=== PATIENT | male | born 1970 | race Hispanic/Latino ===

== ENCOUNTER 2017-11-01 15:42 | Emergency (ER) | payer SELFPAY ==
[2017-11-01] MEDS ORDERED: ASPIRIN 81 MG CHEWABLE TABLET ONE (15:59)
[2017-11-01 16:20] LABS: Absolute Lymphocytes (CBC) 3.2 K/uL (0.7-4.9); Absolute Monocytes 0.6 K/uL (0.1-1.3); Absolute Neutrophil 4.1 K/uL (1.8-8.0); Basophils % 0.4 % (0-1.3); Eosinophils % 2.3 % (0-4.4); Hematocrit 43.7 % (39.6-49.0); Lymphocytes % 39.8 % (15.3-44.8); MCH 30.6 pg (27.0-35.0); MCV 88.6 fL (80-100); MPV 9.1 fL (7.6-11.3); Monocytes % 7.7 % (3.3-12.3); RBC Red Blood Cell Count 4.93 M/uL (4.33-5.43)
[2017-11-01 16:27] LABS: Protime INR 0.88
[2017-11-01 16:30] LABS: Potassium 3.3 mEq/L (3.6-5.0)
[2017-11-01 16:36] LABS: Albumin 4.2 g/dL (3.2-5.5); Bilirubin Direct 0.1 mg/dL (0-0.2); Bilirubin Total 0.7 mg/dL (0.3-1.2); Magnesium 1.6 mg/dL (1.8-2.5); Protein, Total 7.5 g/dL (6.0-8.3)
--- NOTE | 2017-11-01 16:50 | RAD REPORT ---
EXAM DESCRIPTION: RAD - Chest Single View - 11/01/2017 4:12 pm CLINICAL HISTORY: Left-sided chest pain COMPARISON: None. TECHNIQUE: AP portable chest image was obtained 1601 hours . FINDINGS: Lungs are clear. Heart and vasculature are normal. No measurable pleural effusion and no p neumothorax. No gross bony abnormality seen. No acute aortic findings suspected. IMPRESSION: No acute cardiopulmonary process.
[2017-11-01] MEDS ORDERED: POTASSIUM 25 MEQ EFFERV TAB ONE (17:00)
[2017-11-01] MEDS ORDERED: MAGNESIUM SULFATE 1 gm IVPB 1 GM/100 ML BAG IV ONE (17:00)
[2017-11-01] MEDS ORDERED: ONDANSETRON 4 MG/2 ML VIAL ONE (17:00)
[2017-11-01] MEDS ORDERED: MORPHINE 4 MG/ML SYR ONE (17:00)
[2017-11-01] MEDS ORDERED: NA CHLORIDE 0.9% 1,000 ML ONE (17:01)
[2017-11-01 17:58] LABS: Urine Blood NEGATIVE (NEG); Urine Glucose NEGATIVE (NEG); Urine Protein NEGATIVE (NEG); Urine Specific Gravity <1.005 (1.005-1.030)
--- NOTE | 2017-11-01 20:50 | ER ---
Nurse's Notes [facility] Name: Philippe Jose Age: 47 yrs Sex: Male : 1970 Arrival Date: 11/01/2017 Time: 15:45 Bed 5 Private MD: None, None Diagnosis: Chest pain, unspecified Presentation: 11/01 15:50 Presenting complaint: Patient states: left sided chest pain with left arm numbness that sv started "a couple of hours ago." c/o nausea and SOB. Transition of care: patient was not received from another setting of care. Onset of symptoms was November 01, 2017. 15:50 Method Of Arrival: Wheelchair sv 15:50 Acuity: ANTHONY 2 sv 15:51 Risk Assessment: Do you want to hurt yourself or someone else? Patient reports no sv desire to harm self or others. Initial Sepsis Screen: Does the patient meet any 2 criteria? No. Patient's initial sepsis screen is negative. Does the patient have a suspected source of infection? No. Patient's initial sepsis screen is negative. Care prior to arrival: None. Historical: - Allergies: 15:51 No Known Allergies; sv - Home Meds: 15:51 vitamins [Active]; sv - PMHx: 15:51 None; sv - PSHx: 15:51 ankle; sv - Immunization history:: Adult Immunizations up to date. - Social history:: Smoking status: Patient/guardian denies using tobacco. - Ebola Screening: : Patient negative for fever greater than or equal to 101.5 degrees Fahrenheit, and additional compatible Ebola Virus Disease symptoms Patient denies exposure to infectious person Patient denies travel to an Ebola-affected area in the 21 days before illness onset. Screenin:53 Abuse screen: Denies threats or abuse. Denies injuries from another. Nutritional hb screening: No deficits noted. Tuberculosis screening: No symptoms or risk factors identified. Fall Risk None identified. Assessment: 15:55 General: Appears in no apparent distress. uncomfortable, Behavior is cooperative, hb anxious. Pain: Complains of pain in chest Pain does not radiate. Pain currently is 3 out of 10 on a pain scale. Quality of pain is described as pressure, Pain began suddenly, 2 hours ago. Neuro: Level of Consciousness is awake, alert, obeys commands, Oriented to person, place, time, situation. Cardiovascular: Heart tones S1 S2 present Capillary refill < 3 seconds Patient's skin is warm and dry. Respiratory: Airway is patent Trachea midline Respiratory effort is even, unlabored, Respiratory pattern is regular, symmetrical, Breath sounds are clear bilaterally. GI: No signs and/or symptoms were reported involving the gastrointestinal system. : No signs and/or symptoms were reported regarding the genitourinary system. EENT: No signs and/or symptoms were reported regarding the EENT system. Derm: No signs and/or symptoms reported regarding the dermatologic system. Skin is intact, is healthy with good turgor, Skin is pink, warm \\T\\ dry. normal. 16:26 Reassessment: Patient appears in no apparent distress at this time. No changes from hb previously documented assessment. Patient and/or family updated on plan of care and expected duration. Pain level reassessed. Patient is alert, oriented x 3, equal unlabored respirations, skin warm/dry/pink. 17:06 Reassessment: Pt c/o right sided chest pain 8/10 that now radiates to left side. ASSOCIATE PROFESSOR OF MEDIA ARTS Justo notified, zofran and morphine administered as ordered. 17:30 Reassessment: Patient appears in no apparent distress at this time. Patient and/or hb family updated on plan of care and expected duration. Pain level reassessed. Patient is alert, oriented x 3, equal unlabored respirations, skin warm/dry/pink. Patient denies pain at this time. Patient states feeling better. Patient states symptoms have improved. 18:25 Reassessment: Patient appears in no apparent distress at this time. No changes from hb previously documented assessment. Patient and/or family updated on plan of care and expected duration. Pain level reassessed. Patient is alert, oriented x 3, equal unlabored respirations, skin warm/dry/pink. 19:50 General: Appears in no apparent distress. comfortable, Behavior is calm, cooperative, ao appropriate for age. Pain: Complains of pain in chest Pain does not radiate. Pain currently is 0 out of 10 on a pain scale. Neuro: Level of Consciousness is awake, alert, obeys commands, Oriented to person, place, time, situation, Appropriate for age Moves all extremities. Speech is normal, Facial symmetry appears normal. Cardiovascular: Denies chest pain, Heart tones S1 S2 present Capillary refill < 3 seconds Patient's skin is warm and dry. Respiratory: Airway is patent Respiratory effort is even, unlabored, Respiratory pattern is regular, symmetrical. GI: No signs and/or symptoms were reported involving the gastrointestinal system. Abdomen is non-distended. : No signs and/or symptoms were reported regarding the genitourinary system. EENT: No signs and/or symptoms were reported regarding the EENT system. Derm: Skin is intact, is healthy with good turgor, Skin is pink, warm \\T\\ dry. normal, Skin temperature is warm. Musculoskeletal: Circulation, motion, and sensation intact. Range of motion: intact in all extremities. 20:40 Reassessment: Patient appears in no apparent distress at this time. Patient and/or ao family updated on plan of care and expected duration. Pain level reassessed. Patient is alert, oriented x 3, equal unlabored respirations, skin warm/dry/pink. 21:03 Reassessment: DC instructions given to patient. Patient understand the POC and to ao follow up with PCP. Vital Signs: 15:51 BP 162 / 112; Pulse 97; Resp 20; Temp 98.6; Pulse Ox 99% ; Weight 83.46 kg; Height 5 sv ft. 6 in. (167.64 cm); 16:26 BP 155 / 93; Pulse 99; Resp 14; Pulse Ox 99% on R/A; hb 17:07 BP 151 / 86; Pulse 88; Resp 17; Pulse Ox 100% on R/A; hb 17:47 BP 149 / 85; Pulse 84; Resp 17; Pulse Ox 96% on R/A; dh3 18:31 BP 122 / 80; Pulse 83; Resp 15; Pulse Ox 100% on R/A; Pain 0/10; hb 19:49 BP 141 / 78; Pulse 75; Resp 16; Pulse Ox 99% on R/A; rv 20:45 BP 133 / 74; Pulse 79; Resp 16; Pulse Ox 98% on R/A; Pain 0/10; ao 21:03 BP 135 / 90; Pulse 72; Resp 16; Pulse Ox 100% ; Pain 0/10; ao 15:51 Body Mass Index 29.70 (83.46 kg, 167.64 cm) sv ED Course: 15:45 Patient arrived in ED. sb2 15:46 None, None is Private Physician. sb2 15:48 [facility] pm1 15:48 Dirk Romero MD is Attending Physician. pm1 15:51 Triage completed. sv 15:52 Arm band placed on right wrist. sv 15:53 Cande Jackson, GATITO is Primary Nurse. hb 15:54 Patient has correct armband on for positive identification. Placed in gown. Bed in low hb position. Call light in reach. Side rails up X 1. gas distribution plant operator on. Pulse ox on. NIBP on. 15:54 Inserted saline lock: 18 gauge in right antecubital area, using aseptic technique. hb Blood collected. Patient maintains SpO2 saturation greater than 95% on room air. 15:58 EKG done, by ED staff, reviewed by Justo Rebollar NP. 3 16:10 XRAY Chest (1 view) In Process Unspecified. EDMS 20:55 No provider procedures requiring assistance completed. IV discontinued, intact, ao bleeding controlled, No redness/swelling at site. Pressure dressing applied. Administered Medications: 15:55 Drug: Aspirin Chewable Tablet 324 mg Route: PO; hb 20:34 Follow up: Response: No adverse reaction ao 17:05 Drug: Magnesium Sulfate 1 grams Route: IVPB; Infused Over: 1 hrs; Site: right hb antecubital; 21:08 Follow up: IV Status: Completed infusion ao 17:05 Drug: Potassium Effervescent Tablet 50 mEq Route: PO; hb 21:08 Follow up: Response: No adverse reaction ao 17:05 Drug: morphine 4 mg Route: IVP; Site: right antecubital; hb 21:07 Follow up: Response: No adverse reaction ao 17:06 Drug: Zofran 4 mg Route: IVP; Site: right antecubital; hb 21:07 Follow up: Response: No adverse reaction ao 17:30 Drug: NS 0.9% 1000 ml Route: IV; Rate: 1000 ml; Site: right antecubital; hb 21:07 Follow up: IV Status: Completed infusion; IV Intake: 1000ml ao Intake: 21:07 IV: 1000ml; Total: 1000ml. ao Outcome: 20:49 Discharge ordered by . pm1 21:05 Discharged to home ambulatory. ao 21:05 Condition: stable 21:05 Discharge instructions given to patient, Instructed on discharge instructions, Demonstrated understanding of instructions, follow-up care, medications. 21:06 Patient left the ED. ao Signatures: Dispatcher [employer] EDUrmila Junior, RN RN Joesph Reddy RN RN Justo Vaughan, ASSOCIATE PROFESSOR OF MEDIA ARTS ASSOCIATE PROFESSOR OF MEDIA [employer]S pm1 Cande Jackson RN RN Clair Grewal 3 Shira Abreu 2 Tyrone Cooley RN RN rv
--- NOTE | 2017-11-01 20:50 | EDPHYS ---
Physician Documentation [facility] Name: Philippe Jose Age: 47 yrs Sex: Male : 1970 Arrival Date: 11/01/2017 Time: 15:45 Bed 5 Private MD: None, None ED Physician Dirk Romero HPI: 11/01 17:00 This 47 yrs old Male presents to ER via Wheelchair with complaints of Chest pm1 Pain. 17:00 The patient or guardian reports chest pain that is located primarily in the anterior pm1 chest wall, left. Onset: 2 hour(s) ago. The pain does not radiate. Associated signs and symptoms: Pertinent negatives: abdominal pain, cough, diaphoresis, dizziness, headache, nausea, palpitations, shortness of breath, vomiting. The chest pain is described as aching. Duration: The patient or guardian reports a single episode. Modifying factors: The symptoms are alleviated by nothing. the symptoms are aggravated by emotionally stressful situations. Severity of pain: in the emergency department the pain is unchanged. The patient has experienced similar episodes in the past, a few times, and the symptoms today are exactly the same, to when the patient was apparently diagnosed with Anxiety. The patient has not recently seen a physician. Historical: - Allergies: 15:51 No Known Allergies; sv - Home Meds: 15:51 vitamins [Active]; sv - PMHx: 15:51 None; sv - PSHx: 15:51 ankle; sv - Immunization history:: Adult Immunizations up to date. - Social history:: Smoking status: Patient/guardian denies using tobacco. - Ebola Screening: : Patient negative for fever greater than or equal to 101.5 degrees Fahrenheit, and additional compatible Ebola Virus Disease symptoms Patient denies exposure to infectious person Patient denies travel to an Ebola-affected area in the 21 days before illness onset. ROS: 17:00 Constitutional: Negative for fever, chills, and weight loss, Eyes: Negative for injury, pm1 pain, redness, and discharge, ENT: Negative for injury, pain, and discharge, Neck: Negative for injury, pain, and swelling, Respiratory: Negative for shortness of breath, cough, wheezing, and pleuritic chest pain, Abdomen/GI: Negative for abdominal pain, nausea, vomiting, diarrhea, and constipation, Back: Negative for injury and pain, : Negative for injury, bleeding, discharge, and swelling. 17:00 MS/Extremity: Negative for injury and deformity, Skin: Negative for injury, rash, and discoloration, Neuro: Negative for headache, weakness, numbness, tingling, and seizure. 17:00 Cardiovascular: Positive for chest pain, Negative for edema, orthopnea, palpitations. Exam: 17:00 Constitutional: This is a well developed, well nourished patient who is awake, alert, pm1 and in no acute distress. Head/Face: Normocephalic, atraumatic. Eyes: Pupils equal round and reactive to light, extra-ocular motions intact. Lids and lashes normal. Conjunctiva and sclera are non-icteric and not injected. Cornea within normal limits. Periorbital areas with no swelling, redness, or edema. ENT: Nares patent. No nasal discharge, no septal abnormalities noted. Tympanic membranes are normal and external auditory canals are clear. Oropharynx with no redness, swelling, or masses, exudates, or evidence of obstruction, uvula midline. Mucous membranes moist. Neck: Trachea midline, no thyromegaly or masses palpated, and no cervical lymphadenopathy. Supple, full range of motion without nuchal rigidity, or vertebral point tenderness. No Meningismus. Chest/axilla: Normal chest wall appearance and motion. Nontender with no deformity. No lesions are appreciated. Cardiovascular: Regular rate and rhythm with a normal S1 and S2. No gallops, murmurs, or rubs. Normal PMI, no JVD. No pulse deficits. Respiratory: Lungs have equal breath sounds bilaterally, clear to auscultation and percussion. No rales, rhonchi or wheezes noted. No increased work of breathing, no retractions or nasal flaring. Abdomen/GI: Soft, non-tender, with normal bowel sounds. No distension or tympany. No guarding or rebound. No evidence of tenderness throughout. Back: No spinal tenderness. No costovertebral tenderness. Full range of motion. Skin: Warm, dry with normal turgor. Normal color with no rashes, no lesions, and no evidence of cellulitis. MS/ Extremity: Pulses equal, no cyanosis. Neurovascular intact. Full, normal range of motion. 17:00 Neuro: Orientation: is normal, Motor: is normal, moves all fours, Sensation: is normal, no obvious gross deficits. 17:00 Psych: Behavior/mood is cooperative, anxious. Vital Signs: 15:51 BP 162 / 112; Pulse 97; Resp 20; Temp 98.6; Pulse Ox 99% ; Weight 83.46 kg; Height 5 sv ft. 6 in. (167.64 cm); 16:26 BP 155 / 93; Pulse 99; Resp 14; Pulse Ox 99% on R/A; hb 17:07 BP 151 / 86; Pulse 88; Resp 17; Pulse Ox 100% on R/A; hb 17:47 BP 149 / 85; Pulse 84; Resp 17; Pulse Ox 96% on R/A; dh3 18:31 BP 122 / 80; Pulse 83; Resp 15; Pulse Ox 100% on R/A; Pain 0/10; hb 19:49 BP 141 / 78; Pulse 75; Resp 16; Pulse Ox 99% on R/A; rv 20:45 BP 133 / 74; Pulse 79; Resp 16; Pulse Ox 98% on R/A; Pain 0/10; ao 21:03 BP 135 / 90; Pulse 72; Resp 16; Pulse Ox 100% ; Pain 0/10; ao 15:51 Body Mass Index 29.70 (83.46 kg, 167.64 cm) sv MDM: 15:52 Patient medically screened. pm1 20:49 Data reviewed: vital signs. Data interpreted: Pulse oximetry: on room air is 99 %. pm1 Interpretation: normal. Counseling: I had a detailed discussion with the patient and/or guardian regarding: the historical points, exam findings, and any diagnostic results supporting the discharge/admit diagnosis, lab results, radiology results, the need for outpatient follow up, to return to the emergency department if symptoms worsen or persist or if there are any questions or concerns that arise at home. 11/01 15:53 Order name: Basic Metabolic Panel; Complete Time: 16:47 pm1 11/01 15:53 Order name: BNP; Complete Time: 16:56 pm1 11/01 15:53 Order name: CBC with Diff; Complete Time: 16:47 pm1 11/01 15:53 Order name: Ckmb; Complete Time: 16:47 pm1 11/01 15:53 Order name: CPK; Complete Time: 16:47 pm1 11/01 15:53 Order name: LFT's; Complete Time: 16:47 pm1 02 15:53 Order name: Magnesium; Complete Time: 16:47 pm1 02 15:53 Order name: PT-INR; Complete Time: 16:47 pm1 02 15:53 Order name: Ptt, Activated; Complete Time: 16:47 pm1 02 15:53 Order name: Troponin (emerg Dept Use Only); Complete Time: 16:47 pm1 02 15:53 Order name: XRAY Chest (1 view); Complete Time: 16:56 pm1 11/01 15:53 Order name: D-Dimer; Complete Time: 16:47 pm1 02 17:39 Order name: Urine Dipstick--Ancillary (enter results); Complete Time: 18:02 em1 11/01 19:28 Order name: Troponin (emerg Dept Use Only): Draw at 1999; Complete Time: 20:49 pm1 11/01 15:50 Order name: EKG; Complete Time: 15:50 sv 11/01 15:50 Order name: EKG - Nurse/Tech; Complete Time: 15:53 sv 11/01 15:53 Order name: Cardiac monitoring; Complete Time: 15:55 pm1 02 15:53 Order name: IV Saline Lock; Complete Time: 15:55 pm1 11/01 15:53 Order name: Labs collected and sent; Complete Time: 15:55 pm1 02 15:53 Order name: O2 Per Protocol; Complete Time: 15:55 pm1 02 15:53 Order name: O2 Sat Monitoring; Complete Time: 15:55 pm1 02 15:53 Order name: Urine Dipstick-Ancillary (obtain specimen); Complete Time: 17:27 pm1 Administered Medications: 15:55 Drug: Aspirin Chewable Tablet 324 mg Route: PO; hb 20:34 Follow up: Response: No adverse reaction ao 17:05 Drug: Magnesium Sulfate 1 grams Route: IVPB; Infused Over: 1 hrs; Site: right hb antecubital; 21:08 Follow up: IV Status: Completed infusion ao 17:05 Drug: Potassium Effervescent Tablet 50 mEq Route: PO; hb 21:08 Follow up: Response: No adverse reaction ao 17:05 Drug: morphine 4 mg Route: IVP; Site: right antecubital; hb 21:07 Follow up: Response: No adverse reaction ao 17:06 Drug: Zofran 4 mg Route: IVP; Site: right antecubital; hb 21:07 Follow up: Response: No adverse reaction ao 17:30 Drug: NS 0.9% 1000 ml Route: IV; Rate: 1000 ml; Site: right antecubital; hb 21:07 Follow up: IV Status: Completed infusion; IV Intake: 1000ml ao Disposition: 11/02 12:25 Co-signature as Attending Physician, Dirk Romero MD. Disposition: 11/01/17 20:49 Discharged to Home. Impression: Chest pain, unspecified. - Condition is Stable. - Discharge Instructions: Nonspecific Chest Pain. - Medication Reconciliation Form, Thank You Letter form. - Follow up: Emergency Department; When: As needed; Reason: Worsening of condition. Follow up: Private Physician; When: 2 - 3 days; Reason: Recheck today's complaints, Continuance of care, Re-evaluation by your physician. - Problem is new. - Symptoms have improved. Signatures: Dispatcher [employer] EDUrmila Junior RN RN Joesph Veliz RN RN ao Justo Rebollar, SCHEDULING ANALYST SCHEDULING ANALYST pm1 Cande Jackson RN RN Dirk Romero MD MD Corrections: (The following items were deleted from the chart) 11/01 21:06 20:49 11/01/2017 20:49 Discharged to Home. Impression: Chest pain, unspecified. ao Condition is Stable. Forms are Medication Reconciliation Form, Thank You Letter, Antibiotic Education, Prescription Opioid Use. Follow up: Emergency Department; When: As needed; Reason: Worsening of condition. Follow up: Private Physician; When: 2 - 3 days; Reason: Recheck today's complaints, Continuance of care, Re-evaluation by your physician. Problem is new. Symptoms have improved. pm1
--- NOTE | 2017-11-02 10:42 | EKG ---
Test Date: 2017-11-01 Test Time: 15:53:43 Internist Medical Doctor Md: ROBERTO MEASUREMENT RESULTS: Intervals: Rate: 88 AK: 158 QRSD: 84 QT: 352 QTc: 425 [place]: P: 64 AK: 158 QRS: 50 T: 58 INTERPRETIVE STATEMENTS: Normal sinus rhythm Possible Left atrial enlargement Cannot rule out Septal infarct, age undetermined Abnormal ECG No previous ECG available for comparison Electronically Signed On 11-02-17 10:41:27 CDT by Fazal Edmond
== END 2017-11-01 21:06 | disposition home or self-care (01) ==
LOC: ER 15:42
DX: R07.9 Chest pain, unspecified (principal)
CPT/HCPCS: 36415; 71045; 80048; 80076; 81003; 82550; 82553; 83735; 83880; 84484; 85025; 85379; 85610; 85730; 93005; 96365; 96366; 96375; 99285; J2405; J3475; J7030